=== PATIENT | female | born 1940 | race Two or more races ===

== ENCOUNTER 2024-06-05 08:31 | Outpatient (CLI) | payer OTHER ==
[~2024-06-05 08:31] MED LIST: AMBIEN5 MG PO; ASA81 MG PO; AZOPT5 ML; GLUCOPHAGE XR500 MG PO; IBERSARTAN PO; LUMIGAN2.5 M1; PRAVASTATIN SOD20 MG PO; TROMBONEX CAPSU1 CAP PO; TYLENOL32 MG/ML PO; ZYRTEC10 M3 PO
== END 2024-06-05 08:40 | disposition home or self-care (01) ==
LOC: TOM 08:31
DX: R19.4 Change in bowel habit (principal); D50.0 Iron deficiency anemia secondary to blood loss (chronic)